=== PATIENT | male | born 1965 | race Caucasian/White ===

== ENCOUNTER 2020-06-03 03:43 | Emergency (ER) | payer MEDICAID, SELFPAY ==
[2020-06-03] VITALS (7 sets, daily range): BP systolic 111–137; BP diastolic 61–90; PULSE 88–120; RESP 16–18; TEMP 36.4–37; O2SAT 94–99; BMI 27.2
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
[2020-06-03] MEDS: HYDROmorphone 1 mg/mL INJ 1 mL IVP (04:04)
--- NOTE | 2020-06-03 04:25 | PC.NURSE ---
Rt forearm cleaned and wounds dressed
[2020-06-03 04:38] LABS: Alanine Aminotransferase 22 U/L (0-41); Albumin Level 4.4 g/dL (3.5-5.2); Alkaline Phosphatase 100 IU/L (40-130); Anion Gap 12.2 (5-19); Aspartate Amino Transferase 14 U/L (0-40); Blood Urea Nitrogen 17 mg/dL (6-20); Carbon Dioxide 28 mmol/L (22-29); Chloride 105 mmol/L (98-107); Glomerular Filtration Rate 70.3 mL/min (90-130); Glucose 108 mg/dL (65-115); Osmolality Calculated 294 mOsm/kg (285-295); Potassium 4.2 mmol/L (3.5-5.1); Sodium 141 mmol/L (136-145); Total Bilirubin 0.3 mg/dL (0.15-1.2); Total Protein 6.4 g/dL (6.6-8.7)
[2020-06-03] MEDS: iohexol 350 mg/mL 100 mL Btl IV (04:45)
--- NOTE | 2020-06-03 05:56 | PC.NURSE ---
0525 telfa and coban dressings applied to wounds after closure- call placed to friend for ride
[2020-06-03 06:28] LABS: Basophils # 0.1 10^3/uL (0.0-0.1); Basophils % 0.5 %; Eosinophils # 0.1 10^3/uL (0.0-0.8); Eosinophils % 0.7 %; Hemoglobin 14.7 g/dL (11.7-16.6); Lymphocytes # 1.4 10^3/uL (0.8-4.8); Lymphocytes % 14.8 %; Mean Corpuscular HGB Conc 34.2 g/dL (30.0-36.0); Mean Corpuscular Hemoglobin 32.9 pg (28.0-34.0); Mean Corpuscular Volume 96.2 fL (80-94); Mean Platelet Volume 10.9 fL (7.4-10.4); Monocytes # 0.8 10^3/uL (0.2-0.9); Monocytes % 9.1 %; Neutrophils # 6.89 10^3/uL (1.8-7.7); Neutrophils % 74.7 %; Nucleated Red Blood Cells % 0 %; Platelet Count 233 10^3/cmm (130-400); Red Blood Count 4.47 10^6/uL (4.1-5.3); Red Cell Distribution Width 12.6 % (12.1-15.1); White Blood Count 9.2 10^3/uL (4.0-10.0)
--- NOTE | 2020-06-03 06:57 | PC.NURSE ---
[facility] is here to take pt home. Dc'd by Keisha ALMANZAR
== END 2020-06-03 07:02 | disposition home or self-care (01) ==
PROVIDERS: Emergency Provider Emergency Medicine; PCP Internal Medicine
DX: S51.811A Laceration without foreign body of right forearm, initial encounter (principal); X99.1XXA Assault by knife, initial encounter
CPT/HCPCS: 12002; 12345; 73206; 80053; 85025; 96374; 99283; 99284; J1170; J3490; Q9967